=== PATIENT | female | born 1965 | race Caucasian/White ===

== ENCOUNTER 2017-08-18 23:23 | Emergency (ER) | payer SELFPAY ==
[2017-08-19] MEDS ORDERED: ONDANSETRON 4 MG/2 ML VIAL ONE (00:59)
--- NOTE | 2017-08-19 01:03 | ER ---
Nurse's Notes [facility] Name: Rhoda Villagran Age: 51 yrs Sex: Female : 1965 Arrival Date: 08/18/2017 Time: 23:27 Bed 8 Private MD: Diagnosis: Lower abdominal pain, unspecified Presentation: 08/18 23:46 Presenting complaint: Patient states: "I don't feel right" my hands and legs are really bb cold and I feel dizzy and my stomach hurts in the right lower quadrant. Symptoms started a couple of hours ago. Transition of care: patient was not received from another setting of care. Onset of symptoms was August 18, 2017. Risk Assessment: Do you want to hurt yourself or someone else? Patient reports no desire to harm self or others. Initial Sepsis Screen: Does the patient meet any 2 criteria? No. Patient's initial sepsis screen is negative. Does the patient have a suspected source of infection? No. Patient's initial sepsis screen is negative. Care prior to arrival: None. 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 - Social history:: Smoking status: Patient/guardian denies using tobacco, Patient/guardian denies using alcohol, street drugs. - Ebola Screening: : No symptoms or risks identified at this time. - Family history:: not pertinent. - Hospitalizations: : No recent hospitalization is reported. Assessment: 08/19 00:55 Reassessment: Patient appears in no apparent distress at this time. Patient is alert, aa1 oriented x 3, equal unlabored respirations, skin warm/dry/pink. Came into pt's room and explained that MD ordered an IV and blood work and some nausea medication. Pt states she is feeling better and does not have insurance and does not want to have any tests done. Informed MD of pt wishes and MD states that pt may elope. Pt opts to leave at this time. Vital Signs: 08/18 23:48 BP 161 / 90; Pulse 90; Resp 16 S; Temp 98.3(O); Pulse Ox 98% on R/A; Weight 79.38 kg bb (R); Height 5 ft. 2 in. (157.48 cm) (R); Pain 4/10; 23:48 Body Mass Index 32.01 (79.38 kg, 157.48 cm) bb ED Course: 23:27 Patient arrived in ED. es 23:46 Horacio Stoddard MD is Attending Physician. rn 23:47 Triage completed. bb 23:48 Arm band placed on Patient placed in an exam room, on a stretcher. Family accompanied bb patient. 23:58 Nieves Bee RN is Primary Nurse. aa1 08/19 00:31 Note: IV only per Dr. Stoddard. patient could not tolerate oral contrast.. kw1 00:41 Radiology exam delayed due to Patient is now refusing CT exam due financial concerns. kw1 Notified Dr. Stoddard and he is going to speak with patient and then let the CT Dept. know if there is any change. 01:04 No provider procedures requiring assistance completed. Patient did not have IV access aa1 during this emergency room visit. Administered Medications: 01:05 Not Given (Patient Refused): Zofran 4 mg IVP once; over 2 minutes aa1 Outcome: 01:05 Eloped from patient exam room, after seeing physician aa1 01:05 Condition: stable 01:07 Patient left the ED. aa1 Signatures: Nieves Bee RN RN aa1 Rebecca Finn Brenda, RN RN bb Horacio Stoddard MD MD rn Wilhelm, Kimberly kw1 Corrections: (The following items were deleted from the chart) 01:07 00:55 Reassessment: Came into pt's room and explained that MD ordered an IV and blood aa1 work and some nausea medication. Pt states she is feeling better and does not have insurance and does not want to have any tests done. Informed MD of pt wishes and states that pt may elope. Pt opts to leave at this time aa1
--- NOTE | 2017-08-19 01:03 | EDPHYS ---
Physician Documentation [facility] Name: Rhoda Villagran Age: 51 yrs Sex: Female : 1965 Arrival Date: 08/18/2017 Time: 23:27 Bed 8 Private MD: ED Physician Horacio Stoddard HPI: 08/18 23:57 This 51 yrs old Female presents to ER via Ambulatory with complaints of rn Abdominal Pain, Feel shakey, Hands cold. 23:57 The patient presents with abdominal pain right lower quadrant. Onset: The rn symptoms/episode began/occurred at 23:00. The symptoms do not radiate. Associated signs and symptoms: Pertinent negatives: anorexia, blood in stools, chest pain, constipation, diarrhea, dysuria, fever, headache, hematuria, shortness of breath, vaginal discharge, vomiting, vomiting blood. The symptoms are described as achy. Modifying factors: The symptoms are alleviated by nothing, the symptoms are aggravated by touching the area. Severity of pain: At its worst the pain was mild in the emergency department the pain is unchanged. The patient has not experienced similar symptoms in the past. Reports onset of abd pain around 2300 tonight, no vomiting/fever/diarrhea, constant, RLQ, no radiation, assoc with tingling bilateral upper and lower ext as well as face, whole body "feels cold".. 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 - Social history:: Smoking status: Patient/guardian denies using tobacco, Patient/guardian denies using alcohol, street drugs. - Ebola Screening: : No symptoms or risks identified at this time. - Family history:: not pertinent. - Hospitalizations: : No recent hospitalization is reported. ROS: 23:57 Constitutional: Negative for fever, and weight loss, Eyes: Negative for injury, pain, rn redness, and discharge, Neck: Negative for injury, pain, and swelling, Cardiovascular: Negative for chest pain, palpitations, and edema, Respiratory: Negative for shortness of breath, cough, wheezing, and pleuritic chest pain, Abdomen/GI: + abdominal pain, - vomiting/diarrhea MS/Extremity: Negative for injury and deformity, Skin: Negative for injury, rash, and discoloration, Neuro: Negative for headache, weakness, and seizure Exam: 23:57 Constitutional: This is a well developed, well nourished patient who is awake, alert, rn eyes closed during examination, trembling, appears emotional Head/Face: Normocephalic, atraumatic. Eyes: Pupils equal round and reactive to light, extra-ocular motions intact. Lids and lashes normal. Conjunctiva and sclera are non-icteric and not injected. Cornea within normal limits. Periorbital areas with no swelling, redness, or edema. ENT: MMM Neck: Trachea midline, no thyromegaly or masses palpated, and no cervical lymphadenopathy. Supple, full range of motion without nuchal rigidity, or vertebral point tenderness. No Meningismus. Cardiovascular: Regular rate and rhythm with a normal S1 and S2. No gallops, murmurs, or rubs. Normal PMI, no JVD. No pulse deficits. Respiratory: Lungs have equal breath sounds bilaterally, clear to auscultation and percussion. No rales, rhonchi or wheezes noted. No increased work of breathing, no retractions or nasal flaring. Abdomen/GI: soft, mild RLQ tenderness, no reobund/guarding Skin: Warm, dry with normal turgor. Normal color with no rashes, no lesions, and no evidence of cellulitis. MS/ Extremity: Pulses equal, no cyanosis. Neurovascular intact. Full, normal range of motion. Equal circumference. Neuro: Awake and alert, GCS 15, oriented to person, place, time, and situation. Cranial nerves II-XII grossly intact. Motor strength 5/5 in all extremities. Sensory grossly intact. Cerebellar exam normal. Vital Signs: 23:48 BP 161 / 90; Pulse 90; Resp 16 S; Temp 98.3(O); Pulse Ox 98% on R/A; Weight 79.38 kg bb (R); Height 5 ft. 2 in. (157.48 cm) (R); Pain 4/10; 23:48 Body Mass Index 32.01 (79.38 kg, 157.48 cm) bb MDM: 23:46 Patient medically screened. rn 08/19 01:00 ED course: Pt states feels better after vomiting just now, refuses labs/ct, states rn wants to go home, has eloped prior to results obtained, pt states doesn't have insurance, and doesn't have money to pay for this.. Administered Medications: 01:05 Not Given (Patient Refused): Zofran 4 mg IVP once; over 2 minutes aa1 Disposition: 08/19/17 01:02 Patient left the facility after being seen by provider. Preliminary diagnosis is Lower abdominal pain, unspecified. - Patient left due to feeling better. - Condition is Stable. - Problem is new. - Symptoms have improved. Signatures: Dispatcher [employer] EDMS Nieves Bee RN RN aa1 Emma Davison RN RN bb Nieto, Roman, MD MD garnett fixer: (The following items were deleted from the chart) 01:06 08/18 23:54 IV Saline Lock ordered. jarett armenta 08/19 01:06 08/18 23:54 Labs collected and sent ordered. jarett armenta 08/19 01:06 08/18 23:54 Urine Dipstick-Ancillary ordered. jarett armenta 08/19 01:07 01:02 08/19/2017 01:02 Patient left the facility after being seen by provider. aa1 Preliminary diagnosis is Lower abdominal pain, unspecified. Reason stated they are leaving due to feeling better. Condition is Stable. Problem is new. Symptoms have improved. jarett
== END 2017-08-19 01:07 | disposition left against medical advice (07) ==
LOC: ER 23:23
DX: R10.30 Lower abdominal pain, unspecified (principal); Z88.2 Allergy status to sulfonamides
CPT/HCPCS: 99281; J2405

== ENCOUNTER 2019-02-24 21:09 | Observation (INO) | payer SELFPAY ==
--- OUTSIDE RECORDS SUMMARY | 2019-02-24 21:11 | XMS REPORT ---
:1965 [facility] Address [address] [place] [address] Dr. Lai. [address] [place] [id number] Care Team Providers Name Role Phone Unavailable Unavailable Unavailable Problems This patient has no known problems. Allergies, Adverse Reactions, Alerts This patient has no known allergies or adverse reactions. Medications This patient has no known medications.
--- OUTSIDE RECORDS SUMMARY | 2019-02-24 21:11 | XMS REPORT | Summary of Care ---
:1965 Author Organization [facility] Address [address] [place] [id number] Care Team Providers Name Role Phone Pcp, Patient Does Not Have A Primary Care Provider Reason for Referral Radiology Services (STAT) Status Reason Specialty Diagnoses / Referred By Referred To Procedures Contact Contact New Request Diagnostic Diagnoses Left foot pain Drever, Mary Radiology Procedures XR ANKLE 3+ VW LEFT G, [employer] [address] [place] [address] Radiology Services (STAT) Status Reason Specialty Diagnoses / Referred By Referred To Procedures Contact Contact New Request Diagnostic Diagnoses Left foot pain Drever, Mary Radiology Procedures XR FOOT 3+ VW LEFT G, [employer] [address] [address] Radiology Services (STAT) Status Reason Specialty Diagnoses / Referred By Referred To Procedures Contact Contact New Request Diagnostic Diagnoses Left foot pain Drever, Mary Radiology Procedures XR ANKLE 3+ VW LEFT G, [employer] [address] [address] Radiology Services (STAT) Status Reason Specialty Diagnoses / Referred By Referred To Procedures Contact Contact New Request Diagnostic Diagnoses Left foot pain Drever, Mary Radiology Procedures XR FOOT 3+ VW LEFT G, [employer] [address] [address] Reason for Visit Reason Comments Foot Pain Left Auth/Cert Status Reason Specialty Diagnoses / Referred By Referred To Procedures Contact Contact [facility] [address] [place] [address] Encounter Details Date Type Department Care Team Description 09/27/2018 Emergency [facility] GlenisYingMary Sharlene, Left foot pain ( Primary Dx); Department [employer] Closed nondisplaced fracture of fifth metatarsal bone of left foot, initial encounter [address] [place] [address] [place] [address] [id number] [place] [address] [phone] Allergies Active Allergy Reactions Severity Noted Date Comments Sulfa (Sulfonamide Antibiotics) Unknown - See comments 09/27/2018 documented as of this encounter (statuses as of 09/27/2018) Medications No known medicationsdocumented as of this encounter (statuses as of 09/27/2018) Active Problems No known active problemsdocumented as of this encounter (statuses as of 2018) Social History Tobacco Use Types Packs/Day Years Used Date Never Assessed Sex Assigned at Date Recorded Not on file Job Start Date Occupation Industry Not on file Not on file Not on file Travel History Travel Start Travel End No recent travel history available. documented as of this encounter Last Filed Vital Signs Vital Sign Reading Time Taken Comments Blood Pressure 130/70 09/27/2018 10:02 PM CDT Pulse 75 09/27/2018 10:02 PM CDT Temperature 36.5 C (97.7 F) 09/27/2018 8:11 PM CDT Respiratory Rate 18 09/27/2018 10:02 PM CDT Oxygen Saturation 96% 09/27/2018 10:02 PM CDT Inhaled Oxygen Concentration - - Weight 99.1 kg (218 lb 8 oz) 09/27/2018 8:11 PM CDT Height 157.5 cm (5' 2") 09/27/2018 8:11 PM CDT Body Mass Index 39.96 09/27/2018 8:11 PM CDT documented in this encounter Discharge Instructions InstructionsMary Galvin, [employer] - 09/27/2018Diagnosis: Fracture 5th metatarsal Rest foot as much as possible , use ortho shoe ICE pack for pain and swelling Compression meet dressing Elevate as much as possible Follow up with Dr Parth Hernandez DPM, ankle and foot surgeon [address] [place] [id number] [facility] [phone] Elevation documented in this encounter Plan of Treatment Health Maintenance Due Date Last Done Comments HEPATITIS C (HCV) SCREEN 1965 DTaP,Tdap,and Td Vaccines (1 - 09/20/1983 Tdap) PAP SMEAR 1985 MAMMOGRAM 2004 COLONOSCOPY 2014 Zoster Recombinant Vaccine 2014 (SHINGRIX) (1 of 2) INFLUENZA VACCINE (#1) 2018 PNEUMOCOCCAL 0-64 YEARS COMBINED Aged Out No longer eligible based on SERIES patient's age to complete this topic documented as of this encounter Procedures Procedure Name Priority Date/Time Associated Diagnosis Comments XR FOOT 3+ VW LEFT STAT 09/27/2018 8:48 PM Left foot pain Results for this CDT procedure are in the results section. XR ANKLE 3+ VW LEFT STAT 09/27/2018 8:48 PM Left foot pain Results for this CDT procedure are in the results section. NOTICE OF PRIVACY Routine 09/27/2018 8:03 PM PRACTICES CDT CONSENT/REFUSAL FOR Routine 09/27/2018 8:03 PM DIAGNOSIS AND CDT TREATMENT documented in this encounter Results XR ANKLE 3+ VW LEFT (09/27/2018 8:48 PM CDT) Specimen Impressions Performed At PACS/VR/DOSE Fifth metatarsal fracture. I, Syed Brewer MD., have reviewed this study and agree with the above report. Narrative Performed At * * * * * * * * ORIGINAL REPORT * * * * * * * * PACS/VR/DOSE EXAM: XR ANKLE 3+ VW LEFT XR FOOT 3+ VW LEFT HISTORY: Fall pain with weight bearing COMPARISON: None FINDINGS: Radiographs of the left foot and ankle demonstrate mildly displaced oblique fracture through the fifth toe metatarsal mid diaphysis. Mild overlying soft tissue swelling is seen. The ankle mortise is anatomic. The joint spaces are maintained. A Stieda process is noted. Calcaneal enthesophytes are seen. Enthesophyte formation extends from the dorsum of the talar neck. Procedure Note [facility], Radiant Results Inft User - 09/27/2018 9:36 PM CDT * * * * * * * * ORIGINAL REPORT * * * * * * * * EXAM: XR ANKLE 3+ VW LEFT XR FOOT 3+ VW LEFT HISTORY: Fall pain with weight bearing COMPARISON: None FINDINGS: Radiographs of the left foot and ankle demonstrate mildly displaced oblique fracture through the fifth toe metatarsal mid diaphysis. Mild overlying soft tissue swelling is seen. The ankle mortise is anatomic. The joint spaces are maintained. A Stieda process is noted. Calcaneal enthesophytes are seen. Enthesophyte formation extends from the dorsum of the talar neck. IMPRESSION Fifth metatarsal fracture. Syed Wilder MD., have reviewed this study and agree with the above report. Performing Organization Address City/State/[facility] Phone Number PACS/VR/DOSE XR FOOT 3+ VW LEFT (09/27/2018 8:48 PM CDT) Specimen Impressions Performed At PACS/VR/DOSE Fifth metatarsal fracture. Syed Wilder MD., have reviewed this study and agree with the above report. Narrative Performed At * * * * * * * * ORIGINAL REPORT * * * * * * * * PACS/VR/DOSE EXAM: XR ANKLE 3+ VW LEFT XR FOOT 3+ VW LEFT HISTORY: Fall pain with weight bearing COMPARISON: None FINDINGS: Radiographs of the left foot and ankle demonstrate mildly displaced oblique fracture through the fifth toe metatarsal mid diaphysis. Mild overlying soft tissue swelling is seen. The ankle mortise is anatomic. The joint spaces are maintained. A Stieda process is noted. Calcaneal enthesophytes are seen. Enthesophyte formation extends from the dorsum of the talar neck. Procedure Note [facility], Radiant Results Inft User - 09/27/2018 9:36 PM CDT * * * * * * * * ORIGINAL REPORT * * * * * * * * EXAM: XR ANKLE 3+ VW LEFT XR FOOT 3+ VW LEFT HISTORY: Fall pain with weight bearing COMPARISON: None FINDINGS: Radiographs of the left foot and ankle demonstrate mildly displaced oblique fracture through the fifth toe metatarsal mid diaphysis. Mild overlying soft tissue swelling is seen. The ankle mortise is anatomic. The joint spaces are maintained. A Stieda process is noted. Calcaneal enthesophytes are seen. Enthesophyte formation extends from the dorsum of the talar neck. IMPRESSION Fifth metatarsal fracture. Syed Wilder MD., have reviewed this study and agree with the above report. Performing Organization Address [facility] Phone Number PACS/VR/DOSE documented in this encounter Visit Diagnoses Diagnosis Left foot pain - Primary Pain in limb Closed nondisplaced fracture of fifth metatarsal bone of left foot, initial encounter documented in this encounter Administered Medications Medication Order MAR Action Action Date Dose Rate Site ibuprofen (IBU) tablet 800 mg Given 09/27/2018 8:56 PM CDT 800 mg 800 mg, Oral, ONCE, 1 dose, Sun09/27/18 at 2130, ROE documented in this encounter
--- NOTE | 2019-02-24 21:50 | ER ---
Nurse's Notes [facility] Name: Rhoda Villagran Age: 53 yrs Sex: Female : 1965 Arrival Date: 02/24/2019 Time: 21:13 Bed 6 Private MD: Diagnosis: Chest pain, unspecified Presentation: 02/24 21:24 Presenting complaint: Patient states: Reports chest pain since Sunday, it's a dull ea constant pressure that starts at the right side of chest and radiates to right arm. Pt reports pain 5/10. Transition of care: patient was not received from another setting of care. Onset of symptoms was February 24, 2019. Risk Assessment: Do you want to hurt yourself or someone else? Patient reports no desire to harm self or others. Initial Sepsis Screen: Does the patient meet any 2 criteria? No. Patient's initial sepsis screen is negative. Does the patient have a suspected source of infection? No. Patient's initial sepsis screen is negative. Care prior to arrival: None. 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 - Social history:: Smoking status: Patient denies any tobacco usage or history of. - Ebola Screening: : No symptoms or risks identified at this time. - Family history:: not pertinent. Screenin:27 Abuse screen: Denies threats or abuse. Nutritional screening: No deficits noted. ea Tuberculosis screening: No symptoms or risk factors identified. Fall Risk None identified. Assessment: 21:29 General: Appears in no apparent distress. Behavior is appropriate for age. Pain: ea Complains of pain in anterior aspect of right upper chest Pain radiates to right arm Pain currently is 5 out of 10 on a pain scale. Pain began gradually. Neuro: Level of Consciousness is awake, alert, obeys commands, Oriented to person, place, time. Cardiovascular: Patient's skin is warm and dry. Respiratory: Airway is patent Respiratory effort is even, unlabored, Respiratory pattern is regular, symmetrical. Derm: Skin is pink, warm \T\ dry. 22:30 Reassessment: Patient and/or family updated on plan of care and expected duration. Pain ea level reassessed. Patient is alert, oriented x 3, equal unlabored respirations, skin warm/dry/pink. 23:40 Reassessment: Patient and/or family updated on plan of care and expected duration. Pain ea level reassessed. Patient is alert, oriented x 3, equal unlabored respirations, skin warm/dry/pink. Report called to Adriana OLVERA on fourth floor. 02/25 00:00 Reassessment: Patient and/or family updated on plan of care and expected duration. Pain ea level reassessed. Patient is alert, oriented x 3, equal unlabored respirations, skin warm/dry/pink. Pt admitted to fourth floor, left ED via wheelchair, per tech pt tolerating well. No s/s of pain or discomfort noted at this time. Vital Signs: 02/24 21:28 BP 140 / 72; Pulse 88; Resp 18; Temp 97.9; Pulse Ox 99% on R/A; Weight 76.2 kg; Height ea 5 ft. 2 in. (157.48 cm); Pain 5/10; 22:41 BP 157 / 78; Pulse 60; Resp 18; Pulse Ox 99% ; ea 23:48 BP 148 / 70; Pulse 68; Resp 18; Temp 98; Pulse Ox 100% ; ea 21:28 Body Mass Index 30.73 (76.20 kg, 157.48 cm) ea ED Course: 21:13 Patient arrived in ED. es 21:27 Triage completed. ea 21:28 Patient has correct armband on for positive identification. Bed in low position. Call ea light in reach. color television console monitor on. 21:29 Arm band placed on right wrist. Patient placed in an exam room, on a stretcher, on ea pulse oximetry. 21:29 Patient maintains SpO2 saturation greater than 95% on room air. ea 21:30 Goyo Rivas MD is Attending Physician. gerson 21:31 Anny Rosas RN is Primary Nurse. ea 21:45 Warm blanket given. Pillow given. Verbal reassurance given. jp3 21:48 Meghana Mooney MD is Hospitalizing Provider. gerson 21:48 Inserted saline lock: 20 gauge in right antecubital area, using aseptic technique. ea Blood collected. 22:15 XRAY Chest (1 view) In Process Unspecified. EDMS 23:40 No provider procedures requiring assistance completed. Patient admitted, IV remains in ea place. Administered Medications: 22:01 Drug: Aspirin Chewable Tablet 324 mg Route: PO; ea 22:40 Follow up: Response: No adverse reaction ea 22:01 Drug: Lopressor 25 mg Route: PO; ea 22:41 Follow up: Response: No adverse reaction ea 22:40 Drug: Lovenox 1 mg/kg Route: Sub-Q; Site: right lower abdomen; ea 02/25 00:00 Follow up: Response: No adverse reaction ea Outcome: 02/24 21:49 Decision to Hospitalize by Provider. gerson 23:40 Admitted to Med/surg accompanied by tech, room 428, Report called to Adriana OLVERA ea 23:40 Condition: stable 23:40 Instructed on the need for admit. 02/25 00:16 Patient left the ED. dm5 Signatures: Dispatcher [employer] Shanita Maguire, RN RN dm5 Goyo Rivas MD MD cha Salyer, Edna es Antunez, Elena RN RN Oli Mansfield jp3
--- NOTE | 2019-02-24 21:50 | EDPHYS ---
Physician Documentation [facility] Name: Rhoda Villagran Age: 53 yrs Sex: Female : 1965 Arrival Date: 02/24/2019 Time: 21:13 Bed 6 Private MD: ED Physician Goyo Rivas HPI: 02/24 21:45 This 53 yrs old Female presents to ER via Ambulatory with complaints of Chest gerson Pain, X Sunday. 21:45 The patient or guardian reports chest pain that is located primarily in the substernal gerson area, anterior chest wall, right. Onset: 3 day(s) ago. The pain radiates to the right arm. Associated signs and symptoms: The patient has no apparent associated signs or symptoms. The chest pain is described as a heaviness, a pressure. Duration: The patient or guardian reports a single episode, that is still ongoing. Severity of pain: At its worst the pain was mild moderate in the emergency department the pain has improved moderately. The patient has experienced a previous episode. 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 - Social history:: Smoking status: Patient denies any tobacco usage or history of. - Ebola Screening: : No symptoms or risks identified at this time. - Family history:: not pertinent. ROS: 21:45 Constitutional: Negative for fever, chills, and weight loss, Eyes: Negative for injury, gerson pain, redness, and discharge, ENT: Negative for injury, pain, and discharge, Neck: Negative for injury, pain, and swelling, Respiratory: Negative for shortness of breath, cough, wheezing, and pleuritic chest pain, Abdomen/GI: Negative for abdominal pain, nausea, vomiting, diarrhea, and constipation, Back: Negative for injury and pain, : Negative for injury, bleeding, discharge, and swelling, MS/Extremity: Negative for injury and deformity, Skin: Negative for injury, rash, and discoloration, Neuro: Negative for headache, weakness, numbness, tingling, and seizure, Psych: Negative for depression, anxiety, suicide ideation, homicidal ideation, and hallucinations, Allergy/Immunology: Negative for hives, rash, and allergies, Endocrine: Negative for neck swelling, polydipsia, polyuria, polyphagia, and marked weight changes, Hematologic/Lymphatic: Negative for swollen nodes, abnormal bleeding, and unusual bruising. 21:45 Cardiovascular: Positive for chest pain, of the right arm and anterior aspect of right upper chest. Exam: 21:45 Constitutional: This is a well developed, well nourished patient who is awake, alert, gerson and in no acute distress. Head/Face: Normocephalic, atraumatic. Eyes: Pupils equal round and reactive to light, extra-ocular motions intact. Lids and lashes normal. Conjunctiva and sclera are non-icteric and not injected. Cornea within normal limits. Periorbital areas with no swelling, redness, or edema. ENT: Nares patent. No nasal discharge, no septal abnormalities noted. Tympanic membranes are normal and external auditory canals are clear. Oropharynx with no redness, swelling, or masses, exudates, or evidence of obstruction, uvula midline. Mucous membranes moist. Neck: Trachea midline, no thyromegaly or masses palpated, and no cervical lymphadenopathy. Supple, full range of motion without nuchal rigidity, or vertebral point tenderness. No Meningismus. Chest/axilla: Normal chest wall appearance and motion. Nontender with no deformity. No lesions are appreciated. Cardiovascular: Regular rate and rhythm with a normal S1 and S2. No gallops, murmurs, or rubs. Normal PMI, no JVD. No pulse deficits. Respiratory: Lungs have equal breath sounds bilaterally, clear to auscultation and percussion. No rales, rhonchi or wheezes noted. No increased work of breathing, no retractions or nasal flaring. Abdomen/GI: Soft, non-tender, with normal bowel sounds. No distension or tympany. No guarding or rebound. No evidence of tenderness throughout. Back: No spinal tenderness. No costovertebral tenderness. Full range of motion. Skin: Warm, dry with normal turgor. Normal color with no rashes, no lesions, and no evidence of cellulitis. MS/ Extremity: Pulses equal, no cyanosis. Neurovascular intact. Full, normal range of motion. Neuro: Awake and alert, GCS 15, oriented to person, place, time, and situation. Cranial nerves II-XII grossly intact. Motor strength 5/5 in all extremities. Sensory grossly intact. Cerebellar exam normal. Normal gait. Psych: Awake, alert, with orientation to person, place and time. Behavior, mood, and affect are within normal limits. 21:45 Musculoskeletal/extremity: DVT Exam: No signs of deep vein thrombosis. no pain, no swelling, no tenderness, negative Homans' sign noted on exam, no appreciated bluish discoloration, no erythema, no increased warmth. Vital Signs: 21:28 BP 140 / 72; Pulse 88; Resp 18; Temp 97.9; Pulse Ox 99% on R/A; Weight 76.2 kg; Height ea 5 ft. 2 in. (157.48 cm); Pain 5/10; 22:41 BP 157 / 78; Pulse 60; Resp 18; Pulse Ox 99% ; ea 23:48 BP 148 / 70; Pulse 68; Resp 18; Temp 98; Pulse Ox 100% ; ea 21:28 Body Mass Index 30.73 (76.20 kg, 157.48 cm) MDM: 21:30 Patient medically screened. [facility] 21:47 Data reviewed: vital signs, nurses notes, lab test result(s), EKG, radiologic studies, gerson plain films. 02/24 21:32 Order name: Basic Metabolic Panel; Complete Time: 22:50 02/24 21:32 Order name: CBC with Diff; Complete Time: 22:50 02/24 21:32 Order name: LFT's; Complete Time: 22:50 02/24 21:32 Order name: Magnesium; Complete Time: 22:50 02/24 21:32 Order name: NT PRO-BNP; Complete Time: 22:50 02/24 21:32 Order name: PT-INR; Complete Time: 22:50 02/24 21:32 Order name: Troponin (emerg Dept Use Only); Complete Time: 22:50 02/24 21:32 Order name: XRAY Chest (1 view) 02/24 21:33 Order name: Lipase; Complete Time: 22:50 [facility] 02/24 21:54 Order name: D-Dimer; Complete Time: 22:50 EDMS 02/24 21:32 Order name: EKG; Complete Time: 21:33 02/24 21:32 Order name: Cardiac monitoring; Complete Time: 21:40 ea 02/24 21:32 Order name: EKG - Nurse/Tech; Complete Time: 21:40 ea 02/24 21:32 Order name: IV Saline Lock; Complete Time: 21:54 ea 02/24 21:32 Order name: Labs collected and sent; Complete Time: 21:54 ea 02/24 21:32 Order name: O2 Per Protocol; Complete Time: 21:40 ea 02/24 21:32 Order name: O2 Sat Monitoring; Complete Time: :40 ea Administered Medications: 22:01 Drug: Aspirin Chewable Tablet 324 mg Route: PO; ea 22:40 Follow up: Response: No adverse reaction ea 22: Drug: Lopressor 25 mg Route: PO; ea 22:41 Follow up: Response: No adverse reaction ea :40 Drug: Lovenox 1 mg/kg Route: Sub-Q; Site: right lower abdomen; ea 02/25 00:00 Follow up: Response: No adverse reaction ea Disposition: 02/24/19 21:49 Hospitalization ordered by Meghana Mooney for Observation. Preliminary diagnosis is Chest pain, unspecified. - Bed requested for Telemetry/MedSurg (observation). - Status is Observation. dm5 - Condition is Stable. - Problem is new. - Symptoms have improved. UTI on Admission? No Signatures: Dispatcher [employer] EDVT Shanita De La Vega RN MAY [facility] Cora Castaneda RN Goyo Ramirez MD MD cha Antunez, Elena, RN RN ea Corrections: (The following items were deleted from the chart) 02/24 21:52 21:45 D-DIMER+COAG.LAB.BRZ ordered. [facility] EDVT 23:24 21:49 Hospitalization Ordered by Meghana Mooney MD for Observation. Preliminary diagnosis mw is Chest pain, unspecified. Bed requested for Telemetry/MedSurg (observation). Status is Observation. Condition is Stable. Problem is new. Symptoms have improved. UTI on Admission? No. gerson 02/25 00:16 02/24 23:24 02/24/2019 21:49 Hospitalization Ordered by Meghana Mooney MD for dm5 Observation. Preliminary diagnosis is Chest pain, unspecified. Bed requested for Telemetry/MedSurg (observation). Status is Observation. Condition is Stable. Problem is new. Symptoms have improved. UTI on Admission? No. mw
[2019-02-24] MEDS ORDERED: ASPIRIN 81 MG CHEWABLE TABLET ONE (22:00)
[2019-02-24 22:01] LABS: Absolute Lymphocytes (CBC) 1.4 K/uL (0.7-4.9); Basophils % 0.6 % (0-1.3); Lymphocytes % 20.5 % (15.3-44.8); MPV 8.2 fL (7.6-11.3); RBC Red Blood Cell Count 4.63 M/uL (3.86-4.86)
[2019-02-24] MEDS ORDERED: METOPROLOL TAR 25 MG TAB ONE (22:01)
[2019-02-24] MEDS ORDERED: ENOXAPARIN 80 MG/0.8 ML SQ ONE (22:01)
[2019-02-24 22:14] LABS: Protime INR 1.03
[2019-02-24 22:17] LABS: ALT/SGPT 34 U/L (12-78); AST/SGOT 16 U/L (15-37); Albumin 3.3 g/dL (3.4-5.0); Alkaline Phosphatase 69 U/L (45-117); BUN Blood Urea Nitrogen 10 mg/dL (7-18); Bicarbonate 28 mmol/L (21-32); Bilirubin Direct 0.2 mg/dL (0-0.2); Bilirubin Total 0.5 mg/dL (0.2-1.0); Glucose Level 95 mg/dL (74-106); Lipase 138 U/L (73-393); Magnesium 2.2 mg/dL (1.8-2.4); NT PRO-BNP 99 pg/mL (<125); Potassium 3.6 mmol/L (3.5-5.1); Protein, Total 7.3 g/dL (6.4-8.2); Sodium Level 141 mmol/L (136-145); Troponin (Emerg Dept Use Only) < 0.02 ng/mL (0.0-0.045)
--- NOTE | 2019-02-24 22:38 | EKG ---
Test Date: 2019-02-24 Test Time: 21:26:16 Regional Agronomist: HALLIE MEASUREMENT RESULTS: Intervals: Rate: 71 IL: 124 QRSD: 94 QT: 378 QTc: 410 Ulen: P: 22 IL: 124 QRS: 49 T: 25 INTERPRETIVE STATEMENTS: Sinus rhythm with premature atrial complexes with aberrant conduction Otherwise normal ECG No previous ECG available for comparison Electronically Signed On 02-24-19 22:37:18 [employer]ANDY by Brayan Deleon
[2019-02-24] MEDS ORDERED: ONDANSETRON 4 MG/2 ML VIAL IV PRN (23:26)
[2019-02-24] MEDS ORDERED: NITROGLYCERIN 0.4 MG/TAB SL PRN (23:26)
[2019-02-24] MEDS ORDERED: DOCUSATE NA 100 MG CAP PO PRN (23:28)
--- NOTE | 2019-02-24 23:31 | P.HP ---
Patient History Date of Service: 02/25/19 Reason for admission: chest pain History of Present Illness: yumi baron is a 53yoF w/ no pmhx (also does not visit PCPs) who presents to the ED w/ CP x 2 days. she reports cardiac w/u in 2012 w/stress test and only noted to have a murmur. since her w/u she reports that she has intermittent CP that usually resolves however this episode was different due to the intensity and duration of the chest pressure/ache. she reports radiation down her right arm. she reports SOB and dry cough, however she denies dizziness, N/V, diaphoresis, orthopnea, dyspnea, TIDWELL, or LE swelling. she reports family h/o CAD at similar age. she denies tobacco/drugs. reports occasional etoh use. Allergies Sulfa (Sulfonamide Antibiotics Allergy (Unknown, Uncoded 02/25/19 01:33) Unknown Home Medications: NK [No Home Meds] 02/25/19 - Family History Father -: Heart disease, Hypertension Mother -: Cancer Notes: unknown type of CA - Social History Smoking Status: Never smoker Alcohol use: No CD- Drugs: No Review of Systems General: As per HPI Eyes: Unremarkable Respiratory: Cough, As per HPI Cardiovascular: Chest Pain, As per HPI Gastrointestinal: As per HPI, Unremarkable Genitourinary: Unremarkable Musculoskeletal: As per HPI Neurological: Unremarkable Physical Examination - Physical Exam General: Alert, Oriented x3, Cooperative HEENT: Atraumatic Neck: Supple Respiratory: Clear to auscultation bilaterally Cardiovascular: No edema, Normal pulses Capillary refill: <2 Seconds Gastrointestinal: Normal bowel sounds, Soft and benign, Non-distended, No rebound, No guarding Musculoskeletal: No clubbing, No swelling, No erythema Integumentary: No rashes Neurological: Normal speech, Other (gait not tested) External genitalia: Deferred Rectal: Deferred - Studies Laboratory Data (last 24 hrs) 02/24/19 21:40: PT 12.1, INR 1.03 02/24/19 21:40: WBC 6.6, Hgb 13.4, Hct 41.0, Plt Count 324 02/24/19 21:40: Sodium 141, Potassium 3.6, BUN 10, Creatinine 0.88, Glucose 95, Magnesium 2.2, Total Bilirubin 0.5, AST 16, ALT 34, Alkaline Phosphatase 69, Lipase 138 Assessment and Plan - Plan 53yoF admitted w/ atypical CP w/ r/o ACS trend CE, obtain lipid panel, TSH, a1c monitor w/ tele morphine, ASA, supplemental o2 consult cardio, TTE ordered DVT - SCD - Advance Directives Does patient have a Living Will: No Does patient have a Durable POA for Healthcare: No
[2019-02-25 00:37] VITALS: BMI 37.5
[2019-02-25 04:27] LABS: Urine Appearance CLOUDY; Urine Bilirubin NEGATIVE (NEG); Urine Blood NEGATIVE (NEG); Urine Color YELLOW; Urine Glucose NEGATIVE (NEG); Urine Protein NEGATIVE (NEG); Urine Urobilinogen 0.2 mg/dL (0.2-1.0); Urine pH 7.5 (5.0-7.0)
[2019-02-25 04:29] LABS: Urine Microscopic Reflex ORDER UMIC
[2019-02-25 04:58] LABS: Urine Bacteria LOADED /HPF (<20); Urine Culture Reflex Order REFLEXED; Urine RBC NONE SEEN /HPF (NONE SEEN)
[2019-02-25 05:08] VITALS: O2SAT 95
[2019-02-25 06:13] LABS: Protime INR 1.04
[2019-02-25 06:22] LABS: CKMB Creatine Kinase MB < 1.0 ng/mL (0.3-3.6); HDL Cholesterol 64 mg/dL (40-60); LDL Cholesterol, Calculated 74 (<130); Troponin I < 0.02 ng/mL (0.0-0.045)
[2019-02-25 06:30] LABS: Albumin 3.3 g/dL (3.4-5.0); Bilirubin Total 0.4 mg/dL (0.2-1.0); Magnesium 2.3 mg/dL (1.8-2.4); Potassium 3.8 mmol/L (3.5-5.1); Protein, Total 7.1 g/dL (6.4-8.2); Thyroid Stimulating Hormone 1.89 uIU/mL (0.360-3.740)
[2019-02-25 07:23] LABS: Absolute Lymphocytes (CBC) 1.8 K/uL (0.7-4.9); Basophils % 0.4 % (0-1.3); MPV 8.4 fL (7.6-11.3); RBC Red Blood Cell Count 4.42 M/uL (3.86-4.86)
[2019-02-25] MEDS ORDERED: REGADENOSON 0.4 MG/5 ML SYR IV ONE (07:56)
--- NOTE | 2019-02-25 07:59 | RAD REPORT ---
EXAM DESCRIPTION: Danyel Single View02/24/2019 10:15 pm CLINICAL HISTORY: Chest pain COMPARISON: none FINDINGS: The lungs appear clear of acute infiltrate. The heart is normal size IMPRESSION: No acute abnormalities displayed
[2019-02-25] MEDS ORDERED: lisinopriL 5 MG TAB PO SCH (09:00)
[2019-02-25] MEDS ORDERED: ASPIRIN 325 MG TAB PO SCH (09:00)
[2019-02-25] MEDS ORDERED: FAMOTIDINE 20 MG TAB PO SCH (09:00)
--- NOTE | 2019-02-25 11:36 | ECHO ---
HEIGHT: 5 ft 2 in WEIGHT: 205 lb 0 oz DATE OF STUDY: 02/25/[address]: Meghana Mooney 2-DIMENSIONAL: YES M.MODE: YES DOPPLER: YES COLOR FLOW: YES TDS: PORTABLE: DEFINITY: BUBBLE STUDY: DIAGNOSIS: CHEST PAIN/ FAMILY HISTORY OF CORNARY ARTERY DISEASE CARDIAC HISTORY: CATHERIZATION: NO SURGERY: NO PROSTHETIC VALVE: NO PACEMAKER: NO MEASUREMENTS (cm) DIASTOLIC (NORMALS) SYSTOLIC (NORMALS) IVSd 0.9 (0.6-1.2) LA Diam 4.0 (1.9-4.0) LVEF 66% LVIDd 4.2 (3.5-5.7) LVIDs 2.7 (2.0-3.5) %FS 36% LVPWd 0.9 (0.6-1.2) Ao Diam 2.5 (2.0-3.7) 2 DIMENSIONAL ASSESSMENT: RIGHT ATRIUM: NORMAL LEFT ATRIUM: NORMAL RIGHT VENTRICLE: NORMAL LEFT VENTRICLE: NORMAL TRICUSPID VALVE: NORMAL MITRAL VALVE: NORMAL PULMONIC VALVE: NORMAL AORTIC VALVE: NORMAL PERICARDIAL EFFUSION: NONE AORTIC ROOT: NORMAL LEFT VENTRICULAR WALL MOTION: NORMAL DOPPLER/COLOR FLOW: NORMAL COMMENTS: NORMAL 2-DIMENSIONAL ECHOCARDIOGRAM WITH DOPPLER. NO WALL MOTION ABNORMALITY. NO EFFUSION. TECHNOLOGIST: KARLA QUIROGA
--- NOTE | 2019-02-25 12:58 | RAD REPORT ---
EXAM DESCRIPTION: NM - Rest Stress Cardiac Imaging - 02/25/2019 12:54 pm CLINICAL HISTORY: Chest pain. COMPARISON: None. TECHNIQUE: The patient was administered approximately 10mCi of Tc 99m Sestamibi prior to resting SPE CT imaging of the heart. The patient was then administered approximately 30 mCi of Tc 99m Sestamibi f ollowing exercise or pharmacologic stress. Multiplanar SPECT images were reviewed. FINDINGS: There is uniformity of radiotracer uptake involving the entire left ventricular myocardiu m on rest and stress images. The left ventricular ejection fraction equals 62% IMPRESSION: Negative for a myocardial perfusion defect
--- NOTE | 2019-02-25 14:08 | CON ---
Date of Consultation: 02/25/[address] Melendrez on 02/24/2019. I saw the patient 02/25/2019. Reason For Consultation: Chest pain. History Of Present Illness: Ms. Villagran is 53. No previous cardiac history. Has a family history of he art disease and depression. Does not take any cardiac medications at home. Came in with substernal chest pressure, heaviness that has been going on for about a year, but has worsened over the last few days. Described it as a pressure. Had some right arm radiation with it. No nausea, vomiting, diap horesis, shortness of breath. Denied PND, orthopnea, pedal edema, palpitations, or syncope. Denied any relationship of her chest pain to food, time of the day, body position. She still has her gallbl adder. Past Medical History: Otherwise negative. Allergies: INCLUDE SULFA. Medications: At home are none. Review of Systems: Negative. Social History: Negative. Family History: Positive for heart disease. Physical Examination: Vital Signs: Stable. Afebrile. HEENT: Negative. Neck: Supple. No bruit. Chest: Clear. Cardiac: Revealed a regular rhythm and rate. No murmurs, gallops, or rubs. Abdomen: Benign. Extremities: Revealed no clubbing, cyanosis, or edema. Diagnostic Data: All normal. EKG showed PACs. Impression And Plan: Atypical chest pain, most likely related to gastroesophageal reflux disease, po ssibly gallbladder disease. She already has an echocardiogram and a Lexiscan scheduled by Dr. Melendrez . We will see what those show. If these are negative, she can go home, but I think she needs a GI w orkup as an outpatient. NB/MODL Voice ID: [id number] Report ID: [id number]
[2019-02-25 14:13] LABS: CKMB Creatine Kinase MB < 1.0 ng/mL (0.3-3.6); Troponin I < 0.02 ng/mL (0.0-0.045)
--- NOTE | 2019-02-25 14:43 | P.DS ---
Admission Date: 02/24/19 Discharge Date: 02/25/19 Primary Care Provider: none Disposition: ROUTINE DISCHARGE Discharge Condition: GOOD Reason for Admission: chest pain Consultations: Cardiology-Dr. Gilbert Procedures: Cardiac stress test: COMPARISON: None. TECHNIQUE: The patient was administered approximately 10mCi of Tc 99m Sestamibi prior to resting SPECT imaging of the heart. The patient was then administered approximately 30 mCi of Tc 99m Sestamibi following exercise or pharmacologic stress. Multiplanar SPECT images were reviewed. FINDINGS: There is uniformity of radiotracer uptake involving the entire left ventricular myocardium on rest and stress images. The left ventricular ejection fraction equals 62% IMPRESSION: Negative for a myocardial perfusion defect Echocardiogram: Ejection fraction 66% LEFT VENTRICULAR WALL MOTION: NORMAL DOPPLER/COLOR FLOW: NORMAL COMMENTS: NORMAL 2-DIMENSIONAL ECHOCARDIOGRAM WITH DOPPLER. NO WALL MOTION ABNORMALITY. NO EFFUSION Medical problem list: Chest pain likely noncardiac GERD Hypertension Obesity, BMI 37.5 Brief History of Present Illness: 53-year-old female presented to the emergency room with chest pain. Patient was admitted for further evaluation. Hospital Course: Patient admitted for chest pain. Patient was evaluated. Patient seen and evaluated by Cardiology. Cardiac enzymes unremarkable. Cardiac stress test performed. Cardiac stress test showed no stress-induced ischemia. Echocardiogram unremarkable. Blood pressure was elevated. Patient was initiated on therapy. Cardiology recommended no further intervention. At discharge she will continue with lisinopril 5 mg daily. Recommend to maintain blood pressures less 150/80. Further adjustment can be done by her PCP. Patient plans to establish care soon. Chest pain likely GI related. Patient likely with underlying GERD. At discharge she will continue with Pepcid 20 mg 1 pill twice daily. Education on a GERD diet provided. If chest pain persists patient may require EGD with GI as an outpatient. Lifestyle modification education provided. Vital Signs/Physical Exam: Temp Pulse Resp BP Pulse Ox 97 F 69 16 108/56 L 97 02/25/19 12:00 02/25/19 12:00 02/25/19 12:00 02/25/19 12:00 02/25/19 12:00 General: Alert, In no apparent distress, Oriented x3, Cooperative HEENT: Atraumatic Neck: Supple Respiratory: Clear to auscultation bilaterally, Normal air movement Cardiovascular: Normal pulses, Regular rate/rhythm Gastrointestinal: Normal bowel sounds, Soft and benign, Non-distended, No tenderness, No masses, No rebound, No guarding Musculoskeletal: No erythema, No tenderness, No warmth Integumentary: No tenderness/swelling, No erythema, No warmth, No cyanosis Neurological: Normal speech, Normal strength at 5/5 x4 extr, Normal tone, Normal affect Laboratory Data at Discharge: WBC 6.6 K/uL (4.3-10.9) 02/25/19 05:46 Hgb 12.8 g/dL (12.0-15.0) 02/25/19 05:46 Hct 39.0 % (36.0-45.0) 02/25/19 05:46 Plt Count 338 K/uL (152-406) 02/25/19 05:46 PT 12.2 SECONDS (9.5-12.5) 02/25/19 05:46 INR 1.04 02/25/19 05:46 Sodium 141 mmol/L (136-145) 02/25/19 05:46 Potassium 3.8 mmol/L (3.5-5.1) 02/25/19 05:46 BUN 12 mg/dL (7-18) 02/25/19 05:46 Creatinine 0.77 mg/dL (0.55-1.3) 02/25/19 05:46 Glucose 85 mg/dL (74-106) 02/25/19 05:46 Magnesium 2.3 mg/dL (1.8-2.4) 02/25/19 05:46 Total Bilirubin 0.4 mg/dL (0.2-1.0) 02/25/19 05:46 AST 13 U/L (15-37) L 02/25/19 05:46 ALT 30 U/L (12-78) 02/25/19 05:46 Alkaline Phosphatase 68 U/L (45-117) 02/25/19 05:46 Troponin I < 0.02 ng/mL (0.0-0.045) 02/25/19 13:40 Triglycerides 106 mg/dL (<150) 02/25/19 05:46 Cholesterol 159 mg/dL (<200) 02/25/19 05:46 HDL Cholesterol 64 mg/dL (40-60) H 02/25/19 05:46 Cholesterol/HDL Ratio 2.48 02/25/19 05:46 Lipase 138 U/L (73-393) 02/24/19 21:40 Home Medications: Famotidine [Pepcid*] 20 mg PO BID #60 tab 02/25/19 lisinopriL [Prinivil*] 5 mg PO DAILY #30 tab 02/25/19 New Medications: Famotidine [Pepcid*] 20 mg PO BID #60 tab lisinopriL [Prinivil*] 5 mg PO DAILY #30 tab Patient Discharge Instructions: 1. Patient will need to establish care to follow up this hospitalization. 2. Patient admitted for chest pain. Patient was evaluated. Patient seen and evaluated by Cardiology. Cardiac enzymes unremarkable. Cardiac stress test performed. Cardiac stress test showed no stress-induced ischemia. Echocardiogram unremarkable. Blood pressure was elevated. Patient was initiated on therapy. Cardiology recommended no further intervention. At discharge she will continue with lisinopril 5 mg daily. Recommend to maintain blood pressures less 150/80. Further adjustment can be done by her PCP. Patient plans to establish care soon. Chest pain likely GI related. Patient likely with underlying GERD. At discharge she will continue with Pepcid 20 mg 1 pill twice daily. Education on a GERD diet provided. If chest pain persists patient may require EGD with GI as an outpatient. Lifestyle modification education provided. Diet: AHA Activity: Ad virgilio Time spent managing pt's care (in minutes): 55
--- NOTE | 2019-02-25 14:50 | TREADPHA ---
DX: CHEST PAIN Date of Study: 02/25/2019 Ht: 5 2 Wt: 205 lb 0 oz Consulting Physician: ELIJAH MEDICATIONS: ASPIRIN, PRINIVIL, NITROSTAT, ZOFRAN HISTORY: 53 YEAR OLD FEMALE WITH COMPLAINTS OF CHEST PAIN, HISTORY OF DEPRESSION AND HYPERTENSION. PHYSICIAL EXAMINATION: RESTING B.P.: 111/62 RESTING H.R.: 65 RESTING EKG: NORMAL PROTOCOL: LEXISCAN EXERCISE TIME: 3:30 B.P. AT PEAK STRESS: 114/57 IMPRESSION: LEXISCAN INJECTED, FOLLOWED BY CARDIOLITE PER PROTOCOL, SEE NUCLEAR MEDICINE REPORT. NO SUPRA VENTRICULAR TACHYCARDIA, VENTRICULAR TACHYCARDIA, PREMATURE ATRIAL COMPLEXES OR PREMATURE VENTRICULAR COMPLEXES. PATIENT REPORTS CHEST PAIN 5/10.
[2019-02-25] MEDS ORDERED: NA CHLORIDE 0.9% 500 ML IV ONE (16:27)
[2019-02-25 16:41] VITALS: TEMP 98
[2019-02-25 17:56] VITALS: BP 118/67
--- NOTE | 2019-02-26 06:36 | EKG ---
Test Date: 2019-02-25 Test Time: 18:15:48 It Senior Software Engineer Java: TO, MEASUREMENT RESULTS: Intervals: Rate: 63 TN: 144 QRSD: 108 QT: 416 QTc: 425 Nicasio: P: -2 TN: 144 QRS: 17 T: 10 INTERPRETIVE STATEMENTS: Normal sinus rhythm Minimal voltage criteria for LVH, may be normal variant Inferior infarct, age undetermined Abnormal ECG Compared to ECG 02/24/2019 21:26:16 Left ventricular hypertrophy now present Myocardial infarct finding now present Atrial premature complex(es) no longer present Aberrant conduction of supraventricular beat(s) no longer present Electronically Signed On 02-26-19 06:36:21 PETS SALESPERSON by Brayan Deleon
== END 2019-02-25 19:50 | disposition home or self-care (01) ==
LOC: ER 21:09 → ERHOLD 23:20 → 4TH 23:39
PROVIDERS: ADMIT Internal Medicine; ATTEND Internal Medicine
DX: R07.9 Chest pain, unspecified (principal); K21.9 Gastro-esophageal reflux disease without esophagitis; I10 Essential (primary) hypertension; E66.9 Obesity, unspecified; Z68.37 Body mass index [BMI] 37.0-37.9, adult; Z88.2 Allergy status to sulfonamides
CPT/HCPCS: 36415; 71045; 78452; 80048; 80053; 80061; 80076; 81003; 81015; 82553; 83036; 83690; 83735; 83880; 84443; 84484; 85025; 85379; 85610; 87077; 87086; 87088; 87186; 93005; 93017; 93306; 94760; 96372; 99285; A9500; G0378; J1650; J2785; J7040

== ENCOUNTER 2024-05-05 19:07 | Emergency (ER) | payer SELFPAY ==
--- OUTSIDE RECORDS SUMMARY | 2024-05-05 19:10 | XMS REPORT | Continuity of Care Document ---
Author Name Unknown Address [address] [facility]. [address] [place] [address] [facility] Address [address] [facility] [address] [place] [address] Care Team Providers Care Bronc Breaker Name Role Phone Kendy Real Primary Care Physician Allergies, Adverse Reactions, Alerts Allergy Name Allergy Type Status Severity Reaction(s) Onset Date Inactive Date Treating Clinician Comments Source Sulfa Antibiot ics - CLASS Propensi ty to adverse reaction to drug Active 2022-02 017 00:00: 00 Teodoro Matthew Sulfa (Sulfona mide Antibiot ics) Propensi ty to adverse reaction to drug Active 2017-02 1- 00:00: 00 Teodoro Matthew Medications Ordered Medication Name Filled Medication Name Start Date Stop Date Current Medication? Ordering Clinician Indication Dosage Frequency Signature (SIG) Comments Components Source venlafaxine ER 150 mg capsule,ext ended release 24 hr 2023-02 1- 00:00: 00 Yes 1mg Teodoro Matthew amoxicillin 875 mg-brenda mills clavulanate 125 mg tablet 2023-02 0-07 00:00: 00 Yes 1mg Teodoro Matthew metronidazo le 500 mg tablet 2023-02 0-01 00:00: 00 Yes 1mg Teodoro Matthew venlafaxine ER 150 mg capsule,ext ended release 24 hr 2023-02 0-01 00:00: 00 Yes 1mg Teodoro Matthew hydroxyzine HCl 25 mg tablet 9-05 00:00: 00 Yes 1mg Teodoro Matthew venlafaxine ER 150 mg capsule,ext ended release 24 hr 8-30 00:00: 00 Yes 1mg Teodoro Matthew buspirone 7.5 mg tablet 10-01 00:00: 00 Yes 1mg Teodoro Matthew venlafaxine ER 75 mg capsule,ext ended release 24 hr 10-01 00:00: 00 Yes 1mg Teodoro Matthew TAKE 1 CAPSULE BY MOUTH ONCE DAILY WITH FOOD 2022-02 00:00: 00 03-28 00:00 :00 No 75 Teodoro Matthew TAKE 1 CAPSULE ONCE DAILY WITH FOOD. 2022-02 00:00: 00 03-28 00:00 :00 No 75 Teodoro Yenni Matthew TAKE 1 CAPSULE TWICE DAILY. 2022-02 00:00: 00 03-28 00:00 :00 No 100 Teodoro Matthew TAKE 1 TABLET BY MOUTH EVERY 12 HOURS NEEDED 4- 00:00: 00 03-28 00:00 :00 No Teodoro Yenni Matthew TAKE 1 TABLET BY MOUTH ONCE DAILY FOR 5 DAYS - 00:00: 00 03-28 00:00 :00 No Teodoro Yenni Matthew TAKE 1 TABLET BY MOUTH EVERY 12 HOURS - 00:00: 00 03-28 00:00 :00 No Teodoro Yenni Matthew TAKE 1 TABLET BY MOUTH EVERY 12 HOURS FOR 30 DAYS 4- 00:00: 00 03-28 00:00 :00 No Teodoro Matthew TAKE 1 TABLET BY MOUTH AT BEDTIME - 00:00: 00 03-28 00:00 :00 No Teodoro Matthew trazodone 50 mg tablet 2017-02 00:00: 00 Yes 1mg Teodoro Matthew Effexor XR 37.5 mg capsule,ext ended release 2017-02 00:00: 00 Yes 1mg Teodoro Matthew Vital Signs Vital Name Observation Time Observation Value Comments Kori charles BP Systolic 2024-02-19 15:45:00 153 mm[Hg] Jose Matthew BP Diastolic 2024-02-19 15:45:00 90 mm[Hg] Ming phen Yenni Matthew Weight Measured 2024-02-19 15:45:00 159.00 pounds Teodoro Matthew Height Measured 2024-02-19 15:45:00 62.00 inches Teodoro F Vipul Body Temperature 2024-02-19 15:45:00 98.20 degrees Teodoro F Vipul Heart Rate 2024-02-19 15:45:00 70.00 /min Angela en F Vipul Respiratory Rate 2024-02-19 15:45:00 18.00 /min Teodoro F Vipul BP Systolic 2023-11-06 15:40:00 121 mm[Hg] Step hen F Vipul BP Diastolic 2023-11-06 15:40:00 73 mm[Hg] Ming phen F Vipul Weight Measured 2023-11-06 15:40:00 136.40 pounds Teodoro F Vipul Height Measured 2023-11-06 15:40:00 62.00 inches Teodoro F Vipul Body Temperature 2023-11-06 15:40:00 98.30 degrees Teodoro F Vipul Heart Rate 2023-11-06 15:40:00 72.00 /min Angela en F Vipul Respiratory Rate 2023-11-06 15:40:00 18.00 /min Teodoro F Vipul BP Systolic 2023-10-11 14:16:00 149 mm[Hg] Step hen F Vipul BP Diastolic 2023-10-11 14:16:00 77 mm[Hg] Ming phen F Vipul Weight Measured 2023-10-11 14:16:00 133.80 pounds Teodoro F Vipul Height Measured 2023-10-11 14:16:00 62.00 inches Teodoro F Ivpul Body Temperature 2023-10-11 14:16:00 98.30 degrees Teodoor F Vipul Heart Rate 2023-10-11 14:16:00 56.00 /min Angela en F Vipul Respiratory Rate 2023-10-11 14:16:00 19.00 /min Teodoro F Vpiul Weight Measured 2023-10-02 16:54:00 134.60 pounds Teodoro F Vipul Height Measured 2023-10-02 16:54:00 62.00 inches Teodoro F Vipul Body Temperature 2023-10-02 16:54:00 98.60 degrees Teodoro F Vipul Heart Rate 2023-10-02 16:54:00 73.00 /min Angela en F Vipul Respiratory Rate 2023-10-02 16:54:00 19.00 /min Teodoro F Vipul BP Systolic 2023-10-02 16:54:00 136 mm[Hg] Step hen F Vipul BP Diastolic 2023-10-02 16:54:00 87 mm[Hg] Ming phen F Vipul BP Systolic 2022-11-21 16:18:00 138 mm[Hg] Step hen F Vipul BP Diastolic 2022-11-21 16:18:00 83 mm[Hg] Ming phen F Vipul Weight Measured 2022-11-21 16:18:00 186.00 pounds Teodoro F Vipul Height Measured 2022-11-21 16:18:00 62.00 inches Teodoro F Vipul Body Temperature 2022-11-21 16:18:00 98.20 degrees Teodoro F Vipul Heart Rate 2022-11-21 16:18:00 59.00 /min Angela en F Vipul Respiratory Rate 2022-11-21 16:18:00 18.00 /min Teodoro F Vipul Weight Measured 2021-02-02 08:03:00 220.00 pounds Teodoro F Vipul Height Measured 2021-02-02 08:03:00 62.00 inches Teodoro F Vipul Body Temperature 2021-02-02 08:03:00 Teodoro F Vipul Heart Rate 2021-02-02 08:03:00 Angela en F Vipul Respiratory Rate 2021-02-02 08:03:00 Teodoro F Vipul BP Systolic 2021-02-02 08:03:00 Step hen F Vipul BP Diastolic 2021-02-02 08:03:00 Ming phen F Vipul BP Systolic 2017-12-25 15:58:00 142 mm[Hg] Step hen F Vipul BP Diastolic 2017-12-25 15:58:00 75 mm[Hg] Ming phen F Vipul Weight Measured 2017-12-25 15:58:00 214.40 pounds Teodoro F Vipul Height Measured 2017-12-25 15:58:00 63.00 inches Teodoro F Vipul Body Temperature 2017-12-25 15:58:00 98.10 degrees Teodoro F Vipul Heart Rate 2017-12-25 15:58:00 74.00 /min Angela en F Vipul Respiratory Rate 2017-12-25 15:58:00 Teodoro F Viupl Encounters Start Date/Time End Date/Time Encounter Type Admission Type Attending [facility] Care Department Encounter ID Source 2024-02-19 15:38:05 2024-02-19 15:38:05 Outpatient SFA SFA [id number] Teodoro Matthew 2024-02-19 00:00:00 2024-02-19 00:00:00 Outpatient Visit SFA [id number] Teodoro Matthew 2023-11-06 15:15:45 2023-11-06 15:15:45 Outpatient SFA SFA [id number] Teodoro Matthew 2023-11-06 00:00:00 2023-11-06 00:00:00 Outpatient Visit SFA [id number] Teodoro Matthew 2023-10-11 14:09:51 2023-10-11 14:09:51 Outpatient SFA SFA [id number] Teodoro Matthew 2023-10-11 00:00:00 2023-10-11 00:00:00 Outpatient Visit SFA [id number] Teodoro Matthew 2023-10-02 16:52:31 2023-10-02 16:52:31 Outpatient SFA SFA [id number] Teodoro Matthew 2023-10-02 00:00:00 2023-10-02 00:00:00 Outpatient Visit SFA [id number] Teodoro Matthew 2023-10-01 08:39:06 2023-10-01 08:39:06 Outpatient SFA SFA [id number] Teodoro Matthew 2023-09-27 15:37:32 2023-09-27 15:37:32 Outpatient SFA SFA [id number] Teodoro Matthew 2022-11-21 16:16:05 2022-11-21 16:16:05 Outpatient SFA SFA [id number] Teodoro Matthew Results Test Description Test Time Test Comments Results Result Co mments Source Teodoro MatthewVAGINAL PATHOGENS DNA [id number] 00:00:00* Test Item Value Reference Range Interpretation Comme nts GARCIA SPECIES (test code = ) NEGATIVE G. VAGINALIS (test code = ) POSITIVE T. VAGINALIS (test code = ) NEGATIVE Teodoro MatthewCT/NG, NAAT, [id number] 00:00:00* Test Item Value Reference Range Interpretation Comme nts CHLAMYDIA, NAAT, URINE (test code = 88770) NEGATIVE GONORRHEA, NAAT, URINE (test code = 60703) NEGATIVE Teodoro Hyman AustinURINALYSIS W/REFLEX [id number] 00:00:00* Test Item Value Reference Range Interpretation Comme nts COLOR (test code = 1501) YELLOW APPEARANCE (test code = 1502) CLEAR SPECIFIC GRAVITY (test code = 1503) 1.018 LEUKOCYTE ESTERASE (test cod e = 1504) TRACE NITRITE (test code = 1505) NEGATIVE pH (test code = 1506) 5.5 PROTEIN (test code = 1507) NEGATIVE GLUCOSE (test code = 1508) NEGATIVE KETONES (test code = 1509) NEGATIVE UROBILINOGEN (test code = 1510) 0.2 MG/DL BILIRUBIN (test code = 1511) NEGATIVE OCCULT BLOOD (test code = 1512) NEGATIVE WHITE BLOOD CELLS (test code = 1513) 6-10 /HPF RED BLOOD CELLS (test code = 1514) 0-2 /HPF EPITHELIAL CELLS (test code = 48392) 6-10 /HPF BACTERIA (test code = 1515) 1+ CASTS, HYALINE (test code = 1517) NONE SEEN Teodoro Hyman AustinURINALYSIS W/REFLEX [id number] 00:00:00* Test Item Value Reference Range Interpretation Comme nts COLOR (test code = 1501) YELLOW APPEARANCE (test code = 1502) CLEAR SPECIFIC GRAVITY (test code = 1503) 1.018 LEUKOCYTE ESTERASE (test cod e = 1504) TRACE NITRITE (test code = 1505) NEGATIVE pH (test code = 1506) 5.5 PROTEIN (test code = 1507) NEGATIVE GLUCOSE (test code = 1508) NEGATIVE KETONES (test code = 1509) NEGATIVE UROBILINOGEN (test code = 1510) 0.2 MG/DL BILIRUBIN (test code = 1511) NEGATIVE OCCULT BLOOD (test code = 1512) NEGATIVE WHITE BLOOD CELLS (test code = 1513) 6-10 /HPF RED BLOOD CELLS (test code = 1514) 0-2 /HPF EPITHELIAL CELLS (test code = 71918) 6-10 /HPF BACTERIA (test code = 1515) 1+ CASTS, HYALINE (test code = 1517) NONE SEEN Teodoro Hyman AustinURINALYSIS W/REFLEX [id number] 00:00:00* Test Item Value Reference Range Interpretation Comme nts COLOR (test code = 1501) YELLOW APPEARANCE (test code = 1502) CLEAR SPECIFIC GRAVITY (test code = 1503) 1.018 LEUKOCYTE ESTERASE (test cod e = 1504) TRACE NITRITE (test code = 1505) NEGATIVE pH (test code = 1506) 5.5 PROTEIN (test code = 1507) NEGATIVE GLUCOSE (test code = 1508) NEGATIVE KETONES (test code = 1509) NEGATIVE UROBILINOGEN (test code = 1510) 0.2 MG/DL BILIRUBIN (test code = 1511) NEGATIVE OCCULT BLOOD (test code = 1512) NEGATIVE WHITE BLOOD CELLS (test code = 1513) 6-10 /HPF RED BLOOD CELLS (test code = 1514) 0-2 /HPF EPITHELIAL CELLS (test code = 33778) 6-10 /HPF BACTERIA (test code = 1515) 1+ CASTS, HYALINE (test code = 1517) NONE SEEN Teodoro Hyman AustinURINALYSIS W/REFLEX [id number] 00:00:00* Test Item Value Reference Range Interpretation Comme nts COLOR (test code = 1501) YELLOW APPEARANCE (test code = 1502) CLEAR SPECIFIC GRAVITY (test code = 1503) 1.018 LEUKOCYTE ESTERASE (test cod e = 1504) TRACE NITRITE (test code = 1505) NEGATIVE pH (test code = 1506) 5.5 PROTEIN (test code = 1507) NEGATIVE GLUCOSE (test code = 1508) NEGATIVE KETONES (test code = 1509) NEGATIVE UROBILINOGEN (test code = 1510) 0.2 MG/DL BILIRUBIN (test code = 1511) NEGATIVE OCCULT BLOOD (test code = 1512) NEGATIVE WHITE BLOOD CELLS (test code = 1513) 6-10 /HPF RED BLOOD CELLS (test code = 1514) 0-2 /HPF EPITHELIAL CELLS (test code = 56399) 6-10 /HPF BACTERIA (test code = 1515) 1+ CASTS, HYALINE (test code = 1517) NONE SEEN Teodoro Matthew Notes Date/Time Note Provider Source Teodoro Hadley [facility]2024-10-01 00:00:00 Teodoro Hadley [facility]2024-09-05 00:00:00 Teodoro Hadley [facility]2024-08-27 00:00:00 [facility]
[2024-05-05] MEDS ORDERED: NA CHLORIDE 0.9% 1,000 ML ONE (19:43)
[2024-05-05 19:44] LABS: Absolute Eosinophils 0.3 K/uL (0-0.5); Absolute Lymphocytes (CBC) 2.3 K/uL (0.7-4.9); Absolute Monocytes 0.7 K/uL (0.1-1.3); Absolute Neutrophil 3.4 K/uL (1.8-8.0); Basophils % 0.6 % (0-1.3); Hematocrit 36.5 % (36.0-45.0); MCH 29.5 pg (27.0-35.0); MCHC 32.8 g/dL (32.0-36.0); MPV 7.3 fL (7.6-11.3); Monocytes % 10.5 % (3.3-12.3); Neutrophils % 50.9 % (41.7-73.7); Platelets 345 thou/uL (152-406); RBC Red Blood Cell Count 4.05 M/uL (3.86-4.86); Red Cell Distribution Width 14.5 % (12.1-15.2)
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
[2024-05-05 19:53] LABS: PT Prothrombin Time 10.9 SECONDS (10-13.0); PTT, Activated Partial Thromb 30.3 SECONDS (27.2-37.4); Protime INR 0.95
[2024-05-05 19:56] LABS: Specific Gravity 1.007 (1.005-1.030); Sqamous Epithelial <5 /HPF (None Seen); Urine Bacteria <20 /HPF (<20); Urine Bilirubin NEGATIVE (Negative); Urine Blood Negative (Negative); Urine Clarity Turbid (Clear); Urine Color Colorless (Yellow); Urine Crystals Unidentified Few /HPF (None Seen); Urine Culture Reflex Order NOT NEEDED; Urine Glucose NEGATIVE (Negative); Urine Ketones NEGATIVE (Negative); Urine Microscopic Reflex YN ORDER UMIC; Urine Nitrite 1+ (Negative); Urine Protein NEGATIVE (Negative); Urine RBC <5 /HPF (None Seen); Urine Urobilinogen Normal (Normal); Urine WBC <5 /HPF (<5); Urine WBC Clump Rare /HPF (None Seen); Urine pH 5.5 (5.0-7.0)
[2024-05-05 20:01] LABS: Barbiturates NEGATIVE (NEGATIVE); Benzodiazepines NEGATIVE (NEGATIVE); Cocaine NEGATIVE (NEGATIVE); METHAMPHETAM NEGATIVE (NEGATIVE); Methadone NEGATIVE (NEGATIVE); Opiates NEGATIVE (NEGATIVE); Phencyclidine NEGATIVE (NEGATIVE); THC Cannibis NEGATIVE (NEGATIVE)
[2024-05-05 20:06] LABS: ALT/SGPT 24 U/L (13-56); AST/SGOT 19 U/L (15-37); Albumin 3.5 g/dL (3.4-5.0); Alkaline Phosphatase 64 U/L (45-117); Anion Gap 6.8 mEq/L (5.0-15.0); BUN Blood Urea Nitrogen 15 mg/dL (7-18); Bicarbonate 29 mEq/L (21-32); Bilirubin Total 0.2 mg/dL (0.2-1.0); Globulin 3.6 g/dL (2.3-3.5); Glomerular Filtration Rate 101 ml/min (=/>90); Glucose Level 86 mg/dL (74-106); Potassium 3.8 mEq/L (3.5-5.1); Protein, Total 7.1 g/dL (6.4-8.2); Sodium Level 139 mEq/L (136-145)
[2024-05-05 20:08] LABS: Bilirubin Direct < 0.2 mg/dL (0-0.2); Troponin High Sensitivity < 3.0 pg/mL (<58.9)
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
[2024-05-05] MEDS ORDERED: LORazepam 2 MG/ML VIAL ONE (22:38)
[2024-05-06] MEDS ORDERED: THIAMINE 200 MG/2 ML INJ ONE (00:34)
[2024-05-06] MEDS ORDERED: MULTIVITAMINS 10 ML VIAL (INJ) IV ONE (00:34)
[2024-05-06] MEDS ORDERED: NA CHLORIDE 0.9% 1,000 ML ONE (00:35)
[2024-05-06 09:56] VITALS: TEMP 98.5
[2024-05-06 10:26] VITALS: BP 125/83; O2SAT 100
--- NOTE | 2024-05-06 12:18 | EKG ---
Test Date: 2024-05-05 Test Time: 19:43:58 Automated Access Systems Technician: REBECA MEASUREMENT RESULTS: Intervals: Rate: 73 DE: 130 QRSD: 102 QT: 380 QTc: 418 [place]: P: 30 DE: 130 QRS: 65 T: 33 INTERPRETIVE STATEMENTS: Normal sinus rhythm Normal ECG Compared to ECG 05/15/2022 14:13:21 T-wave abnormality no longer present Electronically Signed On 05-06-24 12:17:47 CDT by Keegan Craig
== END 2024-05-06 09:45 ==
LOC: ER 19:07
DX: R45.851 Suicidal ideations (principal); S80.02XA Contusion of left knee, initial encounter; S80.01XA Contusion of right knee, initial encounter; R07.9 Chest pain, unspecified; V49.40XA Driver injured in collision with unspecified motor vehicles in traffic accident, initial encounter; F32.A Depression, unspecified
CPT/HCPCS: 36415; 70450; 71045; 71260; 72125; 74177; 80048; 80076; 80143; 80179; 80307; 81001; 82077; 84484; 85025; 85610; 85730; 93005; J3411; J7030